=== PATIENT | male | born 1985 ===

== ENCOUNTER 2021-05-17 22:01 | Emergency (ER) | payer SELFPAY ==
[~2021-05-17] VITALS: Ht 172.7 cm; Wt 79.5 kg
[2021-05-17 22:04] VITALS: TEMP 98
[2021-05-17 22:29] VITALS: BP 117/73; PULSE 73
== END 2021-05-17 22:29 | disposition home or self-care (01) ==
LOC: COL.ER 22:01
DX: T18.0XXA Foreign body in mouth, initial encounter (principal); F17.210 Nicotine dependence, cigarettes, uncomplicated